=== PATIENT | female | born 1975 | race Caucasian/White ===

== ENCOUNTER 2021-09-13 10:50 | Day surgery (SDC) | payer MEDICAID, SELFPAY ==
[2021-09-13 11:19] LABS: Internal QC Validated? YES +Cl - CLEAR BKGD; Pregnancy, Urine Negative Negative
[2021-09-13 11:27] VITALS: BP 109/67; PULSE 68; RESP 18; TEMP 36.4; O2SAT 100; BMI 29.5
[2021-09-13] MEDS: Lactated Ringers 1,000 ML 15 ML IV (11:36)
[2021-09-13] MEDS: Lubricating Jelly 60 GM Tube 30 GM (12:45)
--- NOTE | 2021-09-13 12:51 | PCM.DC ---
Discharge Instructions Diet Discharge Diet: No restrictions Activity Discharge Activity: Return to Normal Activity Dressing / Incision Call your doctor if you observe: Fever of 101 or Higher, Inability to urinate and Inability to have a bowel movement Follow Up Care Please Follow Up With: Rossana Hamilton MD When: in the office in 2 weeks, call for appt Test Results: Test results from this visit will be discussed in further detail at your follow-up appointment, if applicable. Discharge Plan Admission Attending Provider: Rossana Hamilton Primary Care Provider: Giles Blount Discharge Orders/Prescriptions Prescriptions: New docusate sodium [Colace] 100 mg capsule 100 mg PO BID Qty: 60 RF: 3 Continued ascorbic acid (vitamin C) [Vitamin C] 500 mg Tablet 500 mg PO DAILY RF: 0 levothyroxine 112 mcg tablet 112 mcg PO DAILY RF: 0 cholecalciferol (vitamin D3) [Vitamin D3] 25 mcg (1,000 unit) Tablet,Chewable 25 mcg PO DAILY RF: 0 Probiotic 100 billion cell Capsule 1 cap PO DAILY RF: 0 Referrals / Follow Up: Giles Blount DO [Primary Care Provider] - Disposition Disposition (needs filled in before D/C Order can be placed): Home, Self Care
--- NOTE | 2021-09-13 12:53 | PCM.OPRPT ---
Problems Associated Problem List Diagnoses (1) Urinary tract infection: Report of Operation Date of Procedure: 09/13/21 Pre-Operative Diagnosis: urinary tract infection Post-Operative Diagnosis: same Surgery/Procedure Performed:: pelvic exam under anesthesia, cystourethroscopy Surgeon: Rossana Hamilton Type of Anesthesia: MAC Description of Procedure: The patient is a 46-year-old female who has a history of urethral trauma approximately 2 to 3 months ago with subsequent recurrent urinary tract infections. She now presents for evaluation under anesthesia. Informed consent was obtained. The patient was taken to the operating room and placed on the operating room table. Anesthesia monitored the head, neck, airway, IV access and vital signs throughout the case. Once anesthesia was appropriately administered the patient was placed into dorsal lithotomy position was prepped and draped in usual sterile fashion. On examination there is no significant prolapse identified however the pelvic floor was weak with a decreased perineal body support. There is also a significant hard stool filling the rectal vault. This time the cystoscope was inserted under direct visualization through the urethra and into the urinary bladder. The urethra was normal without evidence of stricture, scar tissue or other issue. Once in the urinary bladder, the anatomy of the bladder was found to be within normal limits with the ureteral orifices on the area of the trigone. The bladder mucosa was visualized in its entirety and found to be without mass, ulceration, lesion or foreign body. At this time the patient's bladder was emptied and the case was terminated. The patient was awakened and taken to the recovery room in good condition. There were no complications during this procedure. Grafts/Implants Used: none Complications none Admit VTE Documentation VTE Present on Admission: Yes VTE Mechan Device Prophylaxis: SCD's VTE Pharm Prophylaxis ordered?: No Reason prophylaxis not ordered:: Treatment Not Indicated
[2021-09-13 13:00] VITALS: BP 106/68; BP 109/67; PULSE 72; RESP 16; TEMP 36.5; O2SAT 98
[2021-09-13 13:05] VITALS: BP 108/57; BP 109/67; PULSE 70; RESP 16; O2SAT 99
[2021-09-13 13:10] VITALS: BP 109/67; BP 114/69; PULSE 65; RESP 16; O2SAT 100
[2021-09-13 13:27] VITALS: BP 100/66; BP 109/67; PULSE 66; RESP 16; TEMP 36.2; O2SAT 100
[2021-09-13 14:06] VITALS: BP 109/67; BP 122/63; PULSE 64; RESP 16; TEMP 36.5; O2SAT 100
== END 2021-09-13 14:33 | disposition home or self-care (01) ==
LOC: SDC 10:53 → AC 10:54
PROVIDERS: Anesthesiology; PCP Student in an Organized Health Care Education/Training Program; Referring Provider Urology; Visit Provider Urology
PROC: (CPT 57410; principal; 2021-09-13 12:20)
DX: N39.0 Urinary tract infection, site not specified (principal); E07.9 Disorder of thyroid, unspecified; Z86.19 Personal history of other infectious and parasitic diseases; Z79.899 Other long term (current) drug therapy
CPT/HCPCS: 00910; 57410; 81025; 87426; C9803; J7120; J2405

== ENCOUNTER 2025-05-29 10:30 | Emergency (ER) | payer BC, SELFPAY ==
[2025-05-29 10:30] VITALS: BP 130/67; PULSE 81; RESP 14; TEMP 36.2; O2SAT 98; BMI 29.9
--- NOTE | 2025-05-29 10:39 | EKG12_ITS ---
Test Reason : CP Blood Pressure : */* mmHG Vent. Rate : 66 BPM Atrial Rate : 66 BPM P-R Int : 170 ms QRS Dur : 76 ms QT Int : 384 ms P-R-T Axes : 16 9 26 degrees QTcB Int : 402 ms Normal sinus rhythm Normal ECG Confirmed by MIN ALDRIDGE ([id number]), assistant film editor ROBIN CRAIG ([id number]) on 06/03/2025 6:32:00 AM Referred By: TAMI/CHARLIE Confirmed By: MIN ALDRIDGE
--- NOTE | 2025-05-29 10:50 | RAD_ITS ---
PROCEDURE: CHEST PA AND LATERAL 05/29/2025 REASON FOR EXAM: CHEST PAIN TECHNIQUE: CHEST PA AND LATERAL COMPARISON: None FINDINGS: Hardware: EKG electrodes are seen. Heart: The heart size is normal. Mediastinum: The mediastinal contour is unremarkable. Lungs: The lungs are clear. Bones: The bones are unremarkable. RAD/Chest PA and Lateral IMPRESSION: NO ACUTE FINDINGS. Reading Location: [id number]
--- NOTE | 2025-05-29 10:51 | ED.VIS.CHEST ---
HPI History of Present Illness Chief Complaint: Chest Pain Narrative Narrative: Patient is a 49-year-old female presenting to the emergency department for intermittent chest tightness and fatigue. Patient has a past medical history of hyperlipidemia, has not started a statin yet. She saw her primary care doctor about 3 weeks ago. She reports for the past 2 or 3 weeks she has been noticing she has had intermittent left-sided chest tightness that does not radiate anywhere. Reports it happens for about 15 minutes at a time and then goes away. States it is not associated with activity. She states she is a little bit short of breath when this happens but not when she does not have any chest tightness. The last episode was yesterday. Endorses intermittent nausea. Denies any history of DVT or PE. Denies any use of estrogen or hormonal supplements, recent travel, hospitalizations or surgeries. Denies fever or chills. Denies cough, sore throat, vomiting, diarrhea, abdominal pain, dysuria, hematuria. Denies leg edema. Denies any family history of sudden cardiac . [facility] Medical History Urinary tract infection History of mononucleosis Lyme disease Thyroid disease High cholesterol Gastric reflux Non-smoker CPAP (continuous positive airway pressure) dependence Sleep apnea Home Medications ?Medication ?Instructions ?Recorded ?Last Taken ?Type Lactobacillus 40-Bifidobact 1 cap PO DAILY 09/08/21 Unknown History 3-S.thermophilus 100 billion cell capsule (Probiotic) ascorbic acid (vitamin C) 500 mg 500 mg PO DAILY 09/08/21 Unknown History tablet (Vitamin C) cholecalciferol (vitamin D3) 25 25 mcg PO DAILY 09/08/21 Unknown History mcg (1,000 unit) chewable tablet (Vitamin D3) levothyroxine 112 mcg tablet 112 mcg PO DAILY thyroid 09/08/21 09/13/21 09:00 History docusate sodium 100 mg capsule 100 mg PO BID #60 caps 09/13/21 Unknown Rx (Colace) Allergy/AdvReac Type Severity Reaction Status Date / Time Penicillins (PCN) Allergy Rash Verified 05/29/25 10:31 oxycodone (From Percocet) AdvReac Nausea Verified 05/29/25 10:31 Family History unable to obtain Surgical History unable to obtain Social History Smoking Status: Never smoker ROS ROS ED ROS Narrative see HPI EXAM Physical Exam Narrative Exam Narrative: Vital signs: Reviewed General: Alert and orientedx3. No acute distress. HEENT: Head is normocephalic and atraumatic, sinuses nontender, pupils equal round and reactive. Nares are patent. Oropharynx and throat exams normal. Neck: Supple without lymphadenopathy nontender Cardiovascular: Regular rate and rhythm, no murmurs. No rubs or gallops. Normal S1 and S2 Respiratory: Clear to auscultation bilaterally. No wheezes, rales, rhonchi Abdominal: Soft and nontender. Normal bowel sounds. No guarding or rebound. Nonsurgical abdomen Extremities: No tenderness. No bruising. Normal range of motion. Normal sensation. Skin: No rash or redness. Neurological: Cranial nerves II through XII are grossly intact. Normal strength and sensation. Normal cerebellar function The rest of the physical exam is unremarkable Const Vital Signs: 05/29/25 10:30 05/29/25 10:36 Temperature 97.1 F L Temperature Source Temporal Pulse Rate 81 Respiratory Rate 14 Respiratory Effort Normal Non-Labored Blood Pressure 130/67 H Blood Pressure Mean 88 Pulse Ox 98 Oxygen Delivery Method Room Air MDM MDM MDM Narrative Medical decision making narrative: Patient is a 49-year-old female presenting to the emergency department with fatigue and intermittent chest pain and shortness of breath. Patient was seen and examined. Vital stable resting in bed comfortably no acute distress. Differential includes but is not limited to ACS, pneumonia, anemia, electrolyte disturbance less likely PE PERC negative. EKG shows normal sinus rhythm, no ischemic changes, no dysrhythmia. Chest x-ray reviewed by myself, no opacity, no vascular congestion, no pneumothorax. Radiology read with no acute abnormalities. CBC with no leukocytosis and a normal hemoglobin. BMP with no significant abnormalities. Glucose of 122. Magnesium within normal limits. TSH within normal limits. Troponin less than 6. Patient's been having the symptoms on and off for multiple weeks, I do not feel that she needs more than 1 troponin given the first dose normal. I updated the patient on the negative workup. Encouraged follow-up with her primary care doctor as soon as possible. Patient discharged from the Emergency Department. I do not feel that the patient's evaluation reveals any acute reason for admission at this time. I instructed them to either follow-up with their primary care physician or promptly return to the Emergency Department for reevaluation should symptoms worsen or new symptoms develop. I explained what symptoms would indicate the need to return to the emergency department. Shared decision making was used. The patient voiced understanding of the treatment plan and is agreeable with it. Clinical impression Fatigue Chest pain History & Record Review Discussion w/independent historian: Patient Lab Data Attestation: I reviewed the patient's lab results. Labs: Laboratory Results - last 24 hr 05/29/25 11:08 WBC 5.5 RBC 4.25 Hgb 12.9 Hct 39.0 MCV 91.8 MCH 30.4 MCHC 33.1 RDW Std Deviation 42.0 RDW Coeff of Waldo 12.7 Plt Count 217 MPV 9.8 Immature Gran % (Auto) 0.200 Neut % (Auto) 58.9 Lymph % (Auto) 30.4 [place] % (Auto) 8.2 Eos % (Auto) 1.6 Baso % (Auto) 0.7 Absolute Neuts (auto) 3.2 Absolute Lymphs (auto) 1.67 Nucleated RBC % 0 Sodium 140 Potassium 3.8 Chloride 107 Carbon Dioxide 24.6 Anion Gap 9 BUN 12 Creatinine 0.69 L Estim Creat Clear Calc 110.08 Est GFR (MDRD) Non-Af 108 BUN/Creatinine Ratio 17.6 Glucose 122 H Calcium 8.7 Magnesium 2.0 Troponin T High Sens < 6 TSH 0.446 Radiography Diagnostic Testing: Clinical Impression(s) from Imaging Studies Chest X-Ray 05/29/25 10:50 IMPRESSION: NO ACUTE FINDINGS. Reading Location: [id number] Discharge Plan Triage Chief Complaint: Chest Pain ED Provider: Renee Oh Dx/Rx/DC Orders Clinical Impression: Chest pain, Fatigue Instructions: ED Chest Pain, Uncertain Cause Prescriptions: No Action ascorbic acid (vitamin C) [Vitamin C] 500 mg Tablet 500 mg PO DAILY levothyroxine 112 mcg tablet 112 mcg PO DAILY Patient Comments: TAKE 1 TABLET BY MOUTH EVERY DAY for 6 (SIX) days a week, and 2 (TWO) tablets on the 7th day cholecalciferol (vitamin D3) [Vitamin D3] 25 mcg (1,000 unit) Tablet,Chewable 25 mcg PO DAILY Probiotic 100 billion cell Capsule 1 cap PO DAILY docusate sodium [Colace] 100 mg capsule 100 mg PO BID Qty: 60 3RF Rx Instructions: ok to buy OTC if cheaper Stand Alone Forms: Work / School Excuse Primary Care Provider: Giles Blount Referrals: Giles Blount DO [Primary Care Provider] - 2 Days Activity Restrictions/Additional Instructions: Your evaluation in the Emergency Department did not reveal any acute reason for admission. However, I want to emphasize that you may be early in the course of a disease process or illness even if it is not present. For this reason you should follow-up within 24 hours for reevaluation with either your primary care physician or if necessary back here in the Emergency Department. You should return to the Emergency Department immediately if your symptoms worsen or new symptoms develop. Print Language: Tamazight Disposition Disposition: Home, Self Care
[2025-05-29 11:16] LABS: Hematocrit 39.0 % (37-47); Hemoglobin 12.9 g/dL (12.0-15.0); Immature Granulocytes Count 0.010 X10^3/uL (0.0-0.0); Mean Corp Hgb Conc 33.1 g/dL (32-36); Mean Corpuscular Volume 91.8 fL (81-99); Mean Platelet Vol. 9.8 fl (6.2-12.0); NRBC Flagged by Analyzer 0 % (0-5); Platelet Count 217 K/mm3 (150-450); RBC Distribution Width CV 12.7 % (11.6-14.6); RBC Distribution Width SD 42.0 fl (35.1-43.9); Red Blood Count 4.25 M/mm3 (4.2-5.4); White Blood Count 5.5 K/mm3 (4.4-11.0)
[2025-05-29 11:51] LABS: Anion Gap 9 (5-15); BUN 12 mg/dL (4-19); BUN/Creat Ratio 17.6 RATIO (10-20); Calcium,Total 8.7 mg/dL (7.6-11.0); Carbon Dioxide 24.6 mmol/L (21.0-32.0); Chloride 107 mmol/L (98-108); Estimated Creatinine Clearance 110.08 ml/min (50-250); Glucose 122 mg/dL (70-99); Magnesium 2.0 mg/dL (1.5-2.2); Potassium 3.8 mmol/L (3.3-5.1)
[2025-05-29 12:02] LABS: Troponin T High Sensitivity < 6 ng/L (<=14)
[2025-05-29 12:46] VITALS: BP 131/70; PULSE 85; RESP 14; TEMP 36.1; O2SAT 98
== END 2025-05-29 12:52 | disposition home or self-care (01) ==
PROVIDERS: Emergency Provider Student in an Organized Health Care Education/Training Program; PCP Student in an Organized Health Care Education/Training Program; Visit Provider Student in an Organized Health Care Education/Training Program
DX: R07.9 Chest pain, unspecified (principal); E78.00 Pure hypercholesterolemia, unspecified; G47.30 Sleep apnea, unspecified; Z99.89 Dependence on other enabling machines and devices; R53.83 Other fatigue
CPT/HCPCS: 71046; 80048; 83735; 84443; 84484; 85025; 93005; 99283; A4216